=== PATIENT | male | born 1975 | race Caucasian/White ===

== ENCOUNTER 2019-01-09 02:07 | Emergency (ER) | payer SELFPAY ==
[2019-01-09 02:12] VITALS: BMI 24.3
--- NOTE | 2019-01-09 02:25 | ED PDOC ---
HPI: Psych/Substance Abuse Time Seen by Provider: 01/09/19 02:12 Chief Complaint (Nursing): Substance Abuse Chief Complaint (Provider): Substance Abuse ED Caveat: Uncooperative History Per: Patient Onset/Duration Of Symptoms: Unknown Current Symptoms Are (Timing): Still Present Severity: None Associated Symptoms: Agitation Involuntary Hold By: Local Law Enforcement Additional Complaint(s): 43 year old brought in by [employer] police. He is not answering questions and shouting as he is brought in from the ambulance bay. Patient is stating that he is being held against his will and demanding dormitory supervisor. He is refusing to answer questions and a medical workup. Patient will not provide the date or the year. Per [employer], he has been in custody for six hours after he was found with crystal meth and a crack pipe on his person. During this time he has continued to scream the entire time. Unable to get more history from police, EMS or patient. Patient will not sit on stretcher and is ch arging at the police officers. Past Medical History Reviewed: Historical Data, Nursing Documentation, Vital Signs, Unable To Obtain - Family History Family History: States: Unknown Family Hx - Allergies Allergies/Adverse Reactions: Allergies Allergy/AdvReac Type Severity Reaction Status Date / Time No Known Allergies Allergy Verified 01/09/19 02:12 Review of Systems Review Of Systems: ROS cannot be obtained secondary to pt's inabilty to answer questions. Physical Exam - Reviewed Nursing Documentation Reviewed: Yes Vital Signs Reviewed: Yes - Physical Exam Eye Exam: Positive for: Other (superficial abrasion to left zygoma and left ear; no swelling, erythema or active bleeding ) Neurological/Psych: Positive for: Awake, Alert, Other (unable to obtain rest of the exam as patient is uncooperative and aggressive) - Laboratory Results Result Diagrams: 01/09/19 03:09 01/09/19 03:09 - ECG Pulse Ox Interpretation: Normal Medical Decision Making Medical Decision Makin:20 MDM: Crisis evaluation and suspected underlying substance Crisis evaluation once alert and oriented Labs utox, alcohol serum Reassess Due to patient's continued aggressive behavior with staff, was unable to de-escalate situation. Required use of restraints and medications for relief of agitation. Scribe Attestation: Documented by Soila Mcghee, acting as a scribe Alma Hansen MD Provider Scribe Attestation: All medical record entries made by the Scribe were at my direction and personally dictated by me. I have reviewed the chart and agree that the record accurately reflects my personal performance of the history, physical exam, medical decision making, and the department course for this patient. I have also personally directed, reviewed, and agree with the discharge instructions and disposition. Disposition - Clinical Impression Clinical Impression: Aggression - Disposition Disposition: Transfer of Care Disposition Time: 07:00 Condition: GUARDED Forms: [employer] (Singaporean)
[2019-01-09 03:13] LABS: BASO # 0.1 K/uL (0.0-0.2); BASO % 0.6 % (0.0-2.0); EOS # 0.2 K/uL (0.0-0.7); EOS % 1.8 % (0.0-4.0); HEMOGLOBIN 15.1 g/dL (12.0-18.0); LYMPH # 2.2 K/uL (1.0-4.3); LYMPH % 22.9 % (20.0-40.0); MEAN CELL VOLUME 87.2 fl (80.0-94.0); MEAN CORPUSCULAR HEMOGLOBIN 29.4 pg (27.0-31.0); MEAN CORPUSCULAR HGB CONC 33.7 g/dL (33.0-37.0); MEAN PLATELET VOLUME 8.7 fl (7.2-11.7); MONO # 0.8 K/uL (0.0-0.8); MONO % 8.5 % (0.0-10.0); NEUT # 6.3 K/uL (1.8-7.0); NEUT % 66.2 % (50.0-75.0); NRBC % 0.2 % (0.0-0.0); RBC 5.12 Mil/uL (4.40-5.90); RED CELL DISTRIBUTION WIDTH 13.1 % (11.5-14.5); WHITE BLOOD COUNT 9.6 K/uL (4.8-10.8)
[2019-01-09 03:21] LABS: BLOOD UREA NITROGEN 16 mg/dl (9-20); CALCIUM 9.2 mg/dL (8.4-10.2); GFR NON-AFRICAN AMERICAN > 60
--- NOTE | 2019-01-09 07:37 | ED PDOC ---
- Laboratory Results Result Diagrams: 01/09/19 03:09 01/09/19 03:09 - ECG O2 Sat by Pulse Oximetry: 98 (RA) Pulse Ox Interpretation: Normal Medical Decision Making Medical Decision Making: Time: 7:00 Patient was signed out to me by Dr. Hansen pending urine, crisis, and reevaluation. 10:30 [place] [facility] [place] [address] FINDINGS: HEMORRHAGE: No intracranial hemorrhage. BRAIN: No mass effect or edema. Generalized cerebral atrophy noted. A conspicuous microvascular disease changes noted. VENTRICLES: Unremarkable. No hydrocephalus. CALVARIUM: Unremarkable. PARANASAL SINUSES: Inflammatory changes present. MASTOID AIR CELLS: Unremarkable as visualized. No inflammatory changes. OTHER FINDINGS: Leftward nasal septal prominent spurring present. IMPRESSION: No intracranial hemorrhage or mass effect. Cerebral atrophy. Ethmoidal sinusitis. Marked leftward nasal septal deviation and spurring encroaching left nasal airway passages. 1445 Patient resting comfortable, in NAD. 1500 Patient care endorsed to Dr. Betancourt pending [facility] [place]. Scribe Attestation: Documented by Brenda Hicks, acting as a scribe for Alexi Vizcarra MD. Provider Scribe Attestation: All medical record entries made by the Scribe were at my direction and personally dictated by me. I have reviewed the chart and agree that the record accurately reflects my personal performance of the history, physical exam, medical decision making, and the department course for this patient. I have also personally directed, reviewed, and agree with the discharge instructions and disposition. Disposition - Clinical Impression Clinical Impression: Aggression - Disposition Condition: GUARDED Forms: [employer] (Gabonese)
--- NOTE | 2019-01-09 09:25 | CARD ---
APPROVED REPORT Date of service: 01/09/2019 EKG Measurement Heart [id number] OR [id number] [id number] <Conclusion> Normal sinus rhythm Incomplete right bundle branch block Borderline ECG
--- NOTE | 2019-01-09 11:58 | RAD ---
Date of service: 01/09/2019 HISTORY: possible admission COMPARISON: No prior. TECHNIQUE: 1 view obtained. FINDINGS: LUNGS: No active pulmonary disease. PLEURA: No significant pleural effusion identified, no pneumothorax apparent. CARDIOVASCULAR: No aortic atherosclerotic calcification present. Normal cardiac size. No pulmonary vascular congestion. OSSEOUS STRUCTURES: No significant abnormalities. VISUALIZED UPPER ABDOMEN: Normal. OTHER FINDINGS: None. IMPRESSION: No active disease.
--- NOTE | 2019-01-09 12:49 | CT ---
Date of service: 01/09/2019 PROCEDURE: CT HEAD WITHOUT CONTRAST. HISTORY: ams COMPARISON: None available. TECHNIQUE: Axial computed tomography images were obtained through the head/brain without intravenous contrast. Radiation dose: Total exam DLP = 835.71 mGy-cm. This CT exam was performed using one or more of the following dose reduction techniques: Automated exposure control, adjustment of the mA and/or kV according to patient size, and/or use of iterative reconstruction technique. FINDINGS: HEMORRHAGE: No intracranial hemorrhage. BRAIN: No mass effect or edema. Generalized cerebral atrophy noted. A conspicuous microvascular disease changes noted. VENTRICLES: Unremarkable. No hydrocephalus. CALVARIUM: Unremarkable. PARANASAL SINUSES: Inflammatory changes present. MASTOID AIR CELLS: Unremarkable as visualized. No inflammatory changes. OTHER FINDINGS: Leftward nasal septal prominent spurring present. IMPRESSION: No intracranial hemorrhage or mass effect. Cerebral atrophy. Ethmoidal sinusitis. Marked leftward nasal septal deviation and spurring encroaching left nasal airway passages.
[2019-01-09 17:17] LABS: BARBITURATES, UR NEGATIVE (NEGATIVE); BENZODIAZEPINES, UR NEGATIVE (NEGATIVE); OPIATES, UR NEGATIVE (NEGATIVE); PHENCYCLIDINE, UR NEGATIVE (NEGATIVE)
--- NOTE | 2019-01-09 23:01 | ED PDOC ---
- Laboratory Results Result Diagrams: 01/09/19 03:09 01/09/19 03:09 - ECG O2 Sat by Pulse Oximetry: 98 (RA) Medical Decision Making Medical Decision Making: No acute events under my care Disposition - Clinical Impression Clinical Impression: Aggression - POA Present On Arrival: None - Disposition Disposition: Transfer of Care Disposition Time: 23:00 Condition: FAIR Forms: [employer] (Barbadian) Patient Signed Over To: Kuldeep De La Garza (Pending clearance and [facility] [place])
--- NOTE | 2019-01-09 23:05 | ED PDOC ---
- Laboratory Results Result Diagrams: 01/09/19 03:09 01/09/19 03:09 - ECG O2 Sat by Pulse Oximetry: 98 (RA) Pulse Ox Interpretation: Normal Medical Decision Making Medical Decision Makin Patient signed out to me by Dr. Betancourt pending [facility] screen. Patient resting comfortably, in no acute distress. 0230 Patient resting in room comfortably, vital signs stable. 0535 Patient seen and evaluated by [facility] screener, patient accepted by Dr. Ramirez at [facility] Diagnosed: unspecified schizophrenia Patient currently pending [facility] bed availability. 0700 Patient remains comfortable, in no distress. Vital signs remain stable. Patient to be signed out to Dr. Reid pending [facility] bed availability. Scribe Attestation: Documented by Clarita Baugh, acting as a scribe for Kuldeep De La Garza MD. Provider Scribe Attestation: All medical record entries made by the Scribe were at my direction and personally dictated by me. I have reviewed the chart and agree that the record accurately reflects my personal performance of the history, physical exam, medical decision making, and the department course for this patient. I have also personally directed, reviewed, and agree with the discharge instructions and disposition. Disposition - Clinical Impression Clinical Impression: Aggression - POA Present On Arrival: None - Disposition Disposition: Transfer of Care Disposition Time: 07:00 Condition: FAIR Forms: [employer] (Barbadian) Patient Signed Over To: Piper Reid
[2019-01-10 01:05] LABS: URINE BACTERIA RARE (<OCC); URINE BILIRUBIN NEGATIVE (NEGATIVE); URINE BLOOD NEGATIVE (NEGATIVE); URINE CLARITY SLIGHTY-CLOUDY (Clear); URINE COLOR YELLOW (YELLOW); URINE GLUCOSE (UA) NEG (NEGATIVE); URINE LEUKOCYTE ESTERASE NEG Leu/uL (Negative); URINE PROTEIN NEGATIVE (NEGATIVE); URINE URIC ACID CRYSTALS OCC /hpf (<OCC); URINE UROBILINOGEN 0.2-1.0 mg/dL (0.2-1.0)
--- NOTE | 2019-01-10 10:40 | ED PDOC ---
- Laboratory Results Result Diagrams: 01/09/19 03:09 01/09/19 03:09 Lab Results: Urine Color Yellow (YELLOW) 01/10/19 00:45 Urine Clarity Slighty-cloudy (Clear) 01/10/19 00:45 Urine pH 5.0 (5.0-8.0) 01/10/19 00:45 Ur Specific [place] 1.029 (1.003-1.030) 01/10/19 00:45 Urine Protein Negative mg/dL (NEGATIVE) 01/10/19 00:45 Urine Glucose (UA) Neg mg/dL (NEGATIVE) 01/10/19 00:45 Urine Ketones 20 mg/dL (NEGATIVE) 01/10/19 00:45 Urine Blood Negative (NEGATIVE) 01/10/19 00:45 Urine Nitrate Negative (NEGATIVE) 01/10/19 00:45 Urine Bilirubin Negative (NEGATIVE) 01/10/19 00:45 Urine Urobilinogen 0.2-1.0 mg/dL (0.2-1.0) 01/10/19 00:45 Ur Leukocyte Esterase Neg Rudy/uL (Negative) 01/10/19 00:45 Urine RBC (Auto) < 1 /hpf (0-3) 01/10/19 00:45 Urine Microscopic WBC 1 /hpf (0-5) 01/10/19 00:45 Uric Acid Crystals Occ /hpf (<OCC) H 01/10/19 00:45 Urine Bacteria Rare (<OCC) 01/10/19 00:45 - ECG O2 Sat by Pulse Oximetry: 99 Medical Decision Making Medical Decision Makin:00 Pt resting comfortably. Disposition - Clinical Impression Clinical Impression: Psychosis - POA Present On Arrival: None - Disposition Disposition: Transfer of Care Disposition Time: 15:00 Condition: STABLE Patient Signed Over To: Dara Ridley Addendum Addendum: 01/10/19 07:00 Pt signed out by Dr. De La Garza pending [place] [facility] [place] Pt medically cleared.
--- NOTE | 2019-01-10 16:16 | ED PDOC ---
- Laboratory Results Result Diagrams: 01/09/19 03:09 01/09/19 03:09 Lab Results: Urine Color Yellow (YELLOW) 01/10/19 00:45 Urine Clarity Slighty-cloudy (Clear) 01/10/19 00:45 Urine pH 5.0 (5.0-8.0) 01/10/19 00:45 Ur Specific [place] 1.029 (1.003-1.030) 01/10/19 00:45 Urine Protein Negative mg/dL (NEGATIVE) 01/10/19 00:45 Urine Glucose (UA) Neg mg/dL (NEGATIVE) 01/10/19 00:45 Urine Ketones 20 mg/dL (NEGATIVE) 01/10/19 00:45 Urine Blood Negative (NEGATIVE) 01/10/19 00:45 Urine Nitrate Negative (NEGATIVE) 01/10/19 00:45 Urine Bilirubin Negative (NEGATIVE) 01/10/19 00:45 Urine Urobilinogen 0.2-1.0 mg/dL (0.2-1.0) 01/10/19 00:45 Ur Leukocyte Esterase Neg Rudy/uL (Negative) 01/10/19 00:45 Urine RBC (Auto) < 1 /hpf (0-3) 01/10/19 00:45 Urine Microscopic WBC 1 /hpf (0-5) 01/10/19 00:45 Uric Acid Crystals Occ /hpf (<OCC) H 01/10/19 00:45 Urine Bacteria Rare (<OCC) 01/10/19 00:45 - ECG O2 Sat by Pulse Oximetry: 98 Medical Decision Making Medical Decision Makin:00 Patient endorsed to provider by Dr. Reid. Patient is pending bed availability at [facility] [place] for involuntary psychiatric admission. 16:00 Bed available at [facility] for involuntary psychiatric unit. Patient is stable at this time. Transfer initiated. Scribe Attestation: Documented by Anival Pollard, acting as a scribe forMelissa J Ridley MD Provider Scribe Attestation: All medical record entries made by the Scribe were at my direction and personally dictated by me. I have reviewed the chart and agree that the record accurately reflects my personal performance of the history, physical exam, medical decision making, and the department course for this patient. I have also personally directed, reviewed, and agree with the discharge instructions and disposition. Disposition - Clinical Impression Clinical Impression: Psychosis - POA Present On Arrival: None - Disposition Disposition: Other Institution Disposition Time: 16:00 Condition: STABLE
[2019-01-10 17:36] VITALS: BP 134/80; PULSE 74; RESP 20; TEMP 98
[2019-01-13 14:17] VITALS: O2SAT 99
== END 2019-01-10 17:34 | disposition short-term general hospital (02) ==
LOC: H.ER 02:07
DX: F29 Unspecified psychosis not due to a substance or known physiological condition (principal); J32.2 Chronic ethmoidal sinusitis; J34.2 Deviated nasal septum
CPT/HCPCS: 70450; 71045; 80048; 81003; 82948; 85025; 93005; 96372; 99285; G0480; J1630; J2060